=== PATIENT | female | born 1995 | race African-American/Black ===

== ENCOUNTER 2022-04-29 14:31 | Emergency (ER) | payer OTHER ==
[~2022-04-29] VITALS: Ht 160 cm; Wt 506.2 kg
[2022-04-29 14:31] VITALS: BP 116/57
--- NOTE | 2022-04-29 14:41 | NUR ---
BIBS C/O PAIN ON HER 4TH DIGIT ON HER R HAND. PT STATED THAT SHE FIRST NOTICED REDNESS A WEEK AGO AND IT PROGRESSIVELY GOT WORSE, DENIES ANY INJURY OF HAVING ANY HANGNAILS. PT WENT TO URGENT CARE 04/29 AND WAS GIVEN ORAL ANTIBIOTICS AND HAS HAD NO RELIEF AND STATED THAT THE PAIN IS SPREADING HER HER 3RD DIGITS. PAIN IS 10/10 ON PAIN SCALE. AWAITING MD RAMOS.
[2022-04-29] MEDS ORDERED: LIDOCAINE 1% INJ 50 ML MDV IJ ONE (15:04)
[2022-04-29] MEDS ORDERED: LIDOCAINE 0.5% HCL 50 ML VIAL IJ ONE (15:30)
[2022-04-29] MEDS ORDERED: IBUP-1953 PO (15:48)
== END 2022-04-29 15:54 | disposition home or self-care (01) ==
LOC: ER 14:36
DX: L03.011 Cellulitis of right finger (principal)
CPT/HCPCS: 10060; 99282; J3490